=== PATIENT | female | born 1985 ===

== ENCOUNTER 2018-06-06 15:55 | Inpatient (IN) | payer OTHER ==
[~2018-06-06] VITALS: Ht 170.2 cm; Wt 79.8 kg
[~2018-06-06 15:55] MED LIST: ALBUTEROL SULF8.5 GM IH; ALBUTEROL17 G1 IH; CLARITIN10 MG PO; PROVENTIL3 ML/2.5 M IH; SYMBICORT 16010.2 GM IH; TORADOL10 MG PO
[2018-07-10] MEDS ORDERED: PRENATAL TABLE1 EAC1 PO (13:53)
== END 2018-07-13 14:04 | disposition home or self-care (01) | DRG 807 ==
LOC: LDR 07-10 13:13 → OB/GYN 07-11 07:40 → LDR 07-11 15:15 → OB/GYN 07-13 14:04
PROVIDERS: ADMIT Obstetrics & Gynecology
PROC: 10E0XZZ Delivery of Products of Conception, External Approach (ICD-10-PCS; principal; 2018-07-10)
PROC: 0HQ9XZZ Repair Perineum Skin, External Approach (ICD-10-PCS; 2018-07-10)
PROC: 4A0HXFZ Measurement of Products of Conception, Cardiac Rhythm, External Approach (ICD-10-PCS; 2018-07-10)
DX: O70.1 Second degree perineal laceration during delivery (principal); Z37.0 Single live birth; O76 Abnormality in fetal heart rate and rhythm complicating labor and delivery; Z3A.39 39 weeks gestation of pregnancy

== ENCOUNTER 2018-06-27 10:41 | Outpatient (CLI) | payer OTHER | END 2018-06-27 11:42 | disposition home or self-care (01) | LOC: NST 10:41 | DX: Z34.83 Encounter for supervision of other normal pregnancy, third trimester (principal) ==

== ENCOUNTER 2021-02-15 13:15 | Inpatient (IN) | payer OTHER ==
[~2021-02-15] VITALS: Ht 170.2 cm; Wt 79.8 kg
[~2021-02-15 13:15] MED LIST changes: +PRENATAL TABLE1 EAC1 PO
[2021-02-16] MEDS ORDERED: IRON240 MG PO (08:31)
[2021-02-16] MEDS ORDERED: ALBUTEROL S5 MG/1 ML IH (08:31)
== END 2021-02-18 14:16 | disposition home or self-care (01) | DRG 807 ==
LOC: SURG-SUITE 02-16 07:36 → LDR 02-16 07:36 → SURH 02-16 13:15 → SURG-SUITE 02-16 13:19
PROVIDERS: ADMIT Obstetrics & Gynecology Maternal & Fetal Medicine; ATTEND Obstetrics & Gynecology Maternal & Fetal Medicine
PROC: 10E0XZZ Delivery of Products of Conception, External Approach (ICD-10-PCS; principal; 2021-02-16)
PROC: 10S0XZZ Reposition Products of Conception, External Approach (ICD-10-PCS; 2021-02-16)
PROC: 3E033VJ Introduction of Other Hormone into Peripheral Vein, Percutaneous Approach (ICD-10-PCS; 2021-02-16)
PROC: 4A1HXFZ Monitoring of Products of Conception, Cardiac Rhythm, External Approach (ICD-10-PCS; 2021-02-16)
DX: O32.1XX0 Maternal care for breech presentation, not applicable or unspecified (principal); Z37.0 Single live birth; Z3A.39 39 weeks gestation of pregnancy